=== PATIENT | female | born 1955 | race Caucasian/White ===

== ENCOUNTER 2018-08-05 08:32 | Emergency (ER) | payer OTHER ==
[2018-08-05 08:38] VITALS: BMI 34.5
--- NOTE | 2018-08-05 10:19 | ED PDOC ---
HPI: Back Time Seen by Provider: 08/05/18 08:40 Chief Complaint (Nursing): Back Pain Chief Complaint (Provider): Back pain History Per: Patient History/Exam Limitations: no limitations Onset/Duration Of Symptoms: Days (7) Current Symptoms Are (Timing): Still Present Quality Of Discomfort: "Pain" Associated Symptoms: None Exacerbating Factor(s): Turning, Movement Additional History Per: Patient Additional Complaint(s): 63yo female, history of hypertension, diabetes, 2x coronary stent, hyperthyroidsm, comes to ER with complaints of persistent lower back pain x 7 days. Patient states 7 days ago, while attempting to sit on her bed, she missed and fell, landing on her back. She was evaluated at [facility] [place] where she had XR's done and was informed she did not have any fracture; patient reports she was given an injection for pain and discharged home with flexeril and motrin. Patient has been taking medications as prescribed with no relief of symptoms. Patient denies any new trauma, weakness, numbness, bowel/bladder dysfunction and offers no other complaints. PMD: Dr. Gilmore Past Medical History Reviewed: Historical Data, Nursing Documentation, Vital Signs Vital Signs: Last Vital Signs Temp 97.8 F 08/05/18 08:38 Pulse 68 08/05/18 08:38 Resp 20 08/05/18 08:38 BP 139/78 08/05/18 09:09 Pulse Ox 99 08/05/18 08:38 - Medical History PMH: HTN, Hypercholesterolemia, Hyperthyroidism - Surgical History Surgical History: Cholecystectomy, Coronary Stent - Family History Family History: States: No Known Family Hx - Living Arrangements Living Arrangements: With Family - Social History Current smoker - smoking cessation education provided: No Alcohol: None Drugs: Denies - Home Medications Home Medications: Ambulatory Orders Medication Instructions Recorded Ibuprofen [Motrin] 600 mg PO Q6H PRN #20 tab 08/05/18 - Allergies Allergies/Adverse Reactions: Allergies Allergy/AdvReac Type Severity Reaction Status Date / Time No Known Allergies Allergy Verified 08/05/18 08:49 Review of Systems ROS Statement: Except As Marked, All Systems Reviewed And Found Negative Constitutional: Negative for: Fever, Chills Cardiovascular: Negative for: Chest Pain Respiratory: Negative for: Shortness of Breath Gastrointestinal: Negative for: Vomiting, Abdominal Pain Genitourinary Female: Negative for: Incontinence Musculoskeletal: Positive for: Back Pain Neurological: Negative for: Weakness, Numbness Physical Exam - Reviewed Nursing Documentation Reviewed: Yes Vital Signs Reviewed: Yes - Physical Exam Appears: Positive for: Non-toxic, No Acute Distress Head Exam: Positive for: ATRAUMATIC, NORMAL INSPECTION, NORMOCEPHALIC Skin: Positive for: Normal Color, Warm, DRY Eye Exam: Positive for: EOMI, Normal appearance, PERRL ENT: Positive for: Normal ENT Inspection Neck: Positive for: Normal, Painless ROM Cardiovascular/Chest: Positive for: Regular Rate, Rhythm, Chest Non Tender Respiratory: Positive for: CNT, Normal Breath Sounds Gastrointestinal/Abdominal: Positive for: Normal Exam, Soft Back: Positive for: Other (parathoracic and right paralumbar tenderness; negative straight leg bilaterally) Extremity: Positive for: Normal ROM. Negative for: Deformity Neurologic/Psych: Positive for: Alert, policy writer II-XII, Oriented, Gait (stable). Negative for: Motor/Sensory Deficits, Aphasia, Facial Droop - ECG O2 Sat by Pulse Oximetry: 99 (RA) Pulse Ox Interpretation: Normal Medical Decision Making Medical Decision Making: Impression: Back pain sp fall r/o fractures Plan: * XR Thoracic spine * XR lumbar spine * Toradol 15mg IM * Valium 5mg PO Time: 1120 XR L-spine FINDINGS: BONES: Normal alignment. No listhesis. There is T12 mild compression deformity superior endplate of unknown chronicity. A mild compression injury here osteoporotic type is a consideration no history of trauma provided. No retropulsed ossific fragments noted. The loss of height is estimated at less than 25 percent. DISC SPACES: T11-T12 disc space narrowing OTHER FINDINGS: None. IMPRESSION: Mild compression deformity superior endplate T12 of unknown chronicity -a mild osteo carotic fracture with low less than 25 percent loss of vertebral body height is compatible with this. Correlate clinically Time: 1122 XR L-Spine FINDINGS: BONES: Alignment maintained. There is T12 mild compression deformity superior endplate of unknown chronicity. A mild compression injury here osteoporotic type is a consideration no history of trauma provided. No retropulsed ossific fragments noted. The loss of height is estimated at less than 25 percent. DISC SPACES: Normal. SOFT TISSUES: Normal. OTHER FINDINGS: None. IMPRESSION: Mild compression deformity superior endplate T12 of unknown chronicity -a mild osteoporotic fracture with low less than 25 percent loss of vertebral body height is compatible with this. Correlate clinically Time: [address] Simons ortho front office clerk who recommends a neurosurgery consult due to nature of findings. Time: 1321 Call placed to neurosurgeon front office clerk, pending call-back. Time: 1400 2nd call placed to neurosurgeon front office clerk, pending call-back. Time: [address] billy Rivera ortho spine (works w/ [facility] [place]) who has reviewed all documents and states the fracture will heal on its own and intervention is not necessary. Patient is ok to be discharged home with instructions to follow up with him. instructions given accordingly. Scribe Attestation: Documented by Christina Almeida, acting as a scribe for Mirian Gallegos MD. Provider Scribe Attestation: All medical record entries made by the Scribe were at my direction and personally dictated by me. I have reviewed the chart and agree that the record accurately reflects my personal performance of the history, physical exam, medical decision making, and the department course for this patient. I have also personally directed, reviewed, and agree with the discharge instructions and disposition. Disposition - Clinical Impression Clinical Impression: Low back pain - Patient ED Disposition Is Patient to be Admitted: No Counseled Patient/Family Regarding: Studies Performed, Diagnosis, Need For Followup - Disposition Referrals: [employer] [facility] [Outside] Ham Rivera MD [Staff Provider] - Disposition: Routine/Home Disposition Time: 13:45 Condition: IMPROVED Additional Instructions: follow up with your primary doctor as well as with the spine doctor in 1 week return to the ED with an worsening or concerning symptoms Prescriptions: Ibuprofen [Motrin] 600 mg PO Q6H PRN #20 tab PRN Reason: Pain, Moderate (4-7) Instructions: Low Back Pain (DC) Forms: [employer] (Bulgarian) Print Language: [place]
--- NOTE | 2018-08-05 11:22 | RAD ---
Date of service: 08/05/2018 PROCEDURE: Radiographs of the Lumbar Spine. HISTORY: lower back pain COMPARISON: No prior. FINDINGS: BONES: Normal alignment. No listhesis. There is T12 mild compression deformity superior endplate of unknown chronicity. A mild compression injury here osteoporotic type is a consideration no history of trauma provided. No retropulsed ossific fragments noted. The loss of height is estimated at less than 25 percent. DISC SPACES: T11-T12 disc space narrowing OTHER FINDINGS: None. IMPRESSION: Mild compression deformity superior endplate T12 of unknown chronicity -a mild osteo carotic fracture with low less than 25 percent loss of vertebral body height is compatible with this. Correlate clinically
--- NOTE | 2018-08-05 11:24 | RAD ---
Date of service: 08/05/2018 HISTORY: lower back pain COMPARISON: No prior. FINDINGS: BONES: Alignment maintained. There is T12 mild compression deformity superior endplate of unknown chronicity. A mild compression injury here osteoporotic type is a consideration no history of trauma provided. No retropulsed ossific fragments noted. The loss of height is estimated at less than 25 percent. DISC SPACES: Normal. SOFT TISSUES: Normal. OTHER FINDINGS: None. IMPRESSION: Mild compression deformity superior endplate T12 of unknown chronicity -a mild osteoporotic fracture with low less than 25 percent loss of vertebral body height is compatible with this. Correlate clinically Comments: Study marked for PA review .
[2018-08-05 15:55] VITALS: BP 147/76; PULSE 66; RESP 18; TEMP 98.1
[2018-08-08 22:14] VITALS: O2SAT 99
== END 2018-08-05 14:53 | disposition home or self-care (01) ==
LOC: H.ER 08:32
DX: M54.5 Low back pain (principal); E05.90 Thyrotoxicosis, unspecified without thyrotoxic crisis or storm; E78.00 Pure hypercholesterolemia, unspecified; I10 Essential (primary) hypertension; Z95.5 Presence of coronary angioplasty implant and graft
CPT/HCPCS: 72070; 72114; 96372; 99283; J1885

== ENCOUNTER 2019-04-20 08:17 | Emergency (ER) | payer OTHER ==
[2019-04-20 08:20] VITALS: BMI 29.2
[2019-04-20 08:21] VITALS: TEMP 97.7
--- NOTE | 2019-04-20 10:04 | RAD ---
Date of service: 04/20/2019 HISTORY: cough COMPARISON: No prior. TECHNIQUE: Chest PA and lateral views FINDINGS: LUNGS: No active pulmonary disease. PLEURA: No significant pleural effusion identified. No pneumothorax apparent. CARDIOVASCULAR: No aortic atherosclerotic calcification present. Normal cardiac size. No pulmonary vascular congestion. OSSEOUS STRUCTURES: No significant abnormalities. VISUALIZED UPPER ABDOMEN: Normal. OTHER FINDINGS: None. IMPRESSION: No active disease.
--- NOTE | 2019-04-20 10:47 | ED PDOC ---
HPI: CCC, URI, Sore Throat Time Seen by Provider: 04/20/19 08:30 Chief Complaint (Nursing): Flu-like Symptoms Chief Complaint (Provider): Flu-like Symptoms History Per: Patient History/Exam Limitations: no limitations Onset/Duration Of Symptoms: Days (x3) Current Symptoms Are (Timing): Still Present Additional Complaint(s): Patient is a 64 y/o female with an extensive PMHx who presents to the ED for upper respiratory complaints onset three days ago. Patient reports a cough, sore throat, difficulty swallowing, and mild headache. Patient also states she experienced one episode of diarrhea. Patient denies fever, body aches, and chills. Of note, patient's family members in ED are exhibiting similar symptoms. PCP: Dr. Regina Gilmore Past Medical History Reviewed: Historical Data, Nursing Documentation, Vital Signs Vital Signs: Last Vital Signs Temp 97.7 F 04/20/19 08:20 Pulse 71 04/20/19 08:20 Resp 16 04/20/19 08:20 BP 189/96 H 04/20/19 08:20 Pulse Ox 100 04/20/19 08:20 Primary Care Provider: Regina Gilmore - Medical History PMH: Anemia (POST OPERATIVE), Gall Bladder Disease, HTN, Hypercholesterolemia, Hypothyroidism, TIA Denies: Chronic Kidney Disease - Surgical History Surgical History: Cholecystectomy, Coronary Stent Denies: Pacemaker - Family History Family History: States: No Known Family Hx - Home Medications Home Medications: Ambulatory Orders Medication Instructions Recorded Cholecalciferol [Vitamin D] 1,000 iu PO DAILY 08/17/18 Clopidogrel [Plavix] 75 mg PO DAILY 08/17/18 Empagliflozin [Jardiance] 25 ng PO DAILY 08/17/18 Gabapentin 300 mg PO TID 08/17/18 Insulin Glargine,Hum.rec.anlog 10 unit SQ QPM 08/17/18 [Basaglar Kwikpen U-100] Insulin Glargine,Hum.rec.anlog 20 unit SQ QAM 08/17/18 [Basaglar Kwikpen U-100] Levothyroxine [Synthroid] 100 mcg PO DAILY 08/17/18 Losartan Potassium 100 mg PO DAILY 08/17/18 MetFORMIN [glucOPHAGE] 1,000 mg PO BID 08/17/18 Metoprolol Tartrate 25 mg PO BID 08/17/18 Simvastatin [Zocor] 40 mg PO HS 08/17/18 amLODIPine [Norvasc] 5 mg PO DAILY 08/17/18 Ibuprofen [Motrin Tab] 600 mg PO Q6 PRN #15 tab 04/20/19 Oseltamivir Cap [Tamiflu] 75 mg PO BID #10 cap 04/20/19 - Allergies Allergies/Adverse Reactions: Allergies Allergy/AdvReac Type Severity Reaction Status Date / Time No Known Allergies Allergy Verified 08/17/18 10:57 Review of Systems ROS Statement: Except As Marked, All Systems Reviewed And Found Negative Constitutional: Negative for: Fever, Chills, Other (body aches) ENT: Positive for: Throat Pain (soreness) Respiratory: Positive for: Cough Gastrointestinal: Positive for: Diarrhea Neurological: Positive for: Headache (mild) Physical Exam - Reviewed Nursing Documentation Reviewed: Yes Vital Signs Reviewed: Yes - Physical Exam Appears: Positive for: No Acute Distress (on evaluation patient is drinking coffee and eating oatmeal) Head Exam: Positive for: ATRAUMATIC, NORMAL INSPECTION, NORMOCEPHALIC Skin: Positive for: Normal Color, Warm. Negative for: Rash Eye Exam: Positive for: EOMI, Normal appearance, PERRL ENT: Positive for: Normal ENT Inspection, TM Is/Are (unremarkable bilaterally), Pharyngeal Erythema. Negative for: Tonsillar Exudate Neck: Positive for: Normal, Painless ROM, Supple Cardiovascular/Chest: Positive for: Regular Rate, Rhythm. Negative for: Murmur Respiratory: Positive for: Normal Breath Sounds. Negative for: Respiratory Distress Gastrointestinal/Abdominal: Positive for: Normal Exam, Soft. Negative for: Tenderness Back: Positive for: Normal Inspection. Negative for: L CVA Tenderness, R CVA Tenderness Extremity: Positive for: Normal ROM. Negative for: Pedal Edema, Deformity Neurological/Psych: Positive for: Alert, Oriented (x3) - ECG O2 Sat by Pulse Oximetry: 100 (RA) Pulse Ox Interpretation: Normal Medical Decision Making Medical Decision Making: Time: 851 Plan: CXR Tylenol 650 mg PO Time: 1000 FINDINGS: LUNGS: No active pulmonary disease. PLEURA: No significant pleural effusion identified. No pneumothorax apparent. CARDIOVASCULAR: No aortic atherosclerotic calcification present. Normal cardiac size. No pulmonary vascular congestion. OSSEOUS STRUCTURES: No significant abnormalities. VISUALIZED UPPER ABDOMEN: Normal. OTHER FINDINGS: None. IMPRESSION: No active disease. Time: 1041 Plan: Rapid Flu A/B Rapid Strep Group A Antigen Most likely to be discharged home. Time: 1140 Rapid strep negative. Influenza A positive. BP elevated but otherwise asymptomatic. Didnt take BP meds yet today. Re-eval well appearing w clear speech without complaints. DC home to followup PMD, take BP meds soon as get home and have BP check within 48hrs. Scribe Attestation: Documented by Bryson Prather, acting as a scribe Kelsey Masterson III, DO. Provider Scribe Attestation: All medical record entries made by the Scribe were at my direction and personally dictated by me. I have reviewed the chart and agree that the record accurately reflects my personal performance of the history, physical exam, medical decision making, and the department course for this patient. I have also personally directed, reviewed, and agree with the discharge instructions and disposition. Disposition - Clinical Impression Clinical Impression: Influenza - Patient ED Disposition Is Patient to be Admitted: No Counseled Patient/Family Regarding: Studies Performed, Diagnosis, Need For Followup, Rx Given - Disposition Disposition: Routine/Home Disposition Time: 12:55 Condition: STABLE Additional Instructions: Drink plenty of fluids. Return to ER for any worse or new symptoms. Avoid close contact with others. See PMD in 3-4 days for re-evaluation./ Prescriptions: Ibuprofen [Motrin Tab] 600 mg PO Q6 PRN #15 tab PRN Reason: Pain, Moderate (4-7) Oseltamivir Cap [Tamiflu] 75 mg PO BID #10 cap Instructions: Flu, Adult (DC) Forms: [employer] (Kiswahili)
[2019-04-20 13:11] VITALS: BP 195/107; PULSE 70; RESP 18
[2019-04-20 13:16] VITALS: O2SAT 100
== END 2019-04-20 13:09 | disposition home or self-care (01) ==
LOC: H.ER 08:17
DX: J11.1 Influenza due to unidentified influenza virus with other respiratory manifestations (principal); E03.9 Hypothyroidism, unspecified; I10 Essential (primary) hypertension; Z79.4 Long term (current) use of insulin; Z86.73 Personal history of transient ischemic attack (TIA), and cerebral infarction without residual deficits; Z95.5 Presence of coronary angioplasty implant and graft; E78.00 Pure hypercholesterolemia, unspecified

== ENCOUNTER 2019-04-30 21:04 | Emergency (ER) | payer OTHER ==
[2019-04-30 21:13] VITALS: RESP 18; BMI 31.6
[2019-04-30] MEDS ORDERED: Albuterol-Ipratrop 3 mg / 0.5 (3 ml) UD INH STA (21:28)
--- NOTE | 2019-04-30 21:31 | ED PDOC ---
History of Present Illness History of Present Illness: 64 y/o female presents to the ED for evaluation of a cough and sore throat. Patient was diagnosed with the Flu on 04/20/2019, was given Tamiflu and has since had a persistent cough and sore throat. Otherwise, patient denies fever or chills. PMD: Regina Gilmore HPI: Influenza Time Seen by Provider: 04/30/19 21:28 Chief Complaint: Flu-like Symptoms Chief Complaint (Provider): Flu-like Symptoms History Per: Patient Exam Limitations: no limitations Onset/Duration Of Symptoms: Days Symptoms include: sore throat, cough Past Medical History Reviewed: Historical Data, Nursing Documentation, Vital Signs Vital Signs: Last Vital Signs Temp 98.4 F 04/30/19 21:12 Pulse 81 04/30/19 21:12 Resp 18 04/30/19 21:12 BP 168/89 H 04/30/19 21:12 Pulse Ox 98 04/30/19 21:12 Primary Care Provider: Regina Gilmore Medical History PMH: Anemia (POST OPERATIVE), Gall Bladder Disease, HTN, Hypercholesterolemia, Hypothyroidism, TIA Denies: Chronic Kidney Disease - Surgical History Surgical History: Cholecystectomy, Coronary Stent Denies: Pacemaker - Family History Family History: States: No Known Family Hx - Home Medications Home Medications: Ambulatory Orders Medication Instructions Recorded Cholecalciferol [Vitamin D] 1,000 iu PO DAILY 08/17/18 Clopidogrel [Plavix] 75 mg PO DAILY 08/17/18 Empagliflozin [Jardiance] 25 ng PO DAILY 08/17/18 Gabapentin 300 mg PO TID 08/17/18 Insulin Glargine,Hum.rec.anlog 10 unit SQ QPM 08/17/18 [Basaglar Kwikpen U-100] Insulin Glargine,Hum.rec.anlog 20 unit SQ QAM 08/17/18 [Basaglar Kwikpen U-100] Levothyroxine [Synthroid] 100 mcg PO DAILY 08/17/18 Losartan Potassium 100 mg PO DAILY 08/17/18 MetFORMIN [glucOPHAGE] 1,000 mg PO BID 08/17/18 Metoprolol Tartrate 25 mg PO BID 08/17/18 Simvastatin [Zocor] 40 mg PO HS 08/17/18 amLODIPine [Norvasc] 5 mg PO DAILY 08/17/18 Ibuprofen [Motrin Tab] 600 mg PO Q6 PRN #15 tab 04/20/19 Oseltamivir Cap [Tamiflu] 75 mg PO BID #10 cap 04/20/19 Albuterol HFA [Ventolin HFA 90 2 puff IH [id number] PRN #1 inhaler 04/30/19 mcg/actuation (8 g)] Azithromycin [Zithromax] 250 mg PO DAILY #6 tab 04/30/19 Guaifenesin [Adult Tussin Chest 20 ml PO Q6 PRN #300 ml 04/30/19 Congestion] Prednisone [Deltasone] 3 tab PO DAILY #15 tablet 04/30/19 Promethazine/Codeine 5 ml PO Q12 PRN #100 ml 04/30/19 [Codeine/Promethazine 10 MG/5 Ml-6.25 MG/5 Ml] - Allergies Allergies/Adverse Reactions: Allergies Allergy/AdvReac Type Severity Reaction Status Date / Time No Known Allergies Allergy Verified 04/30/19 21:17 Review of Systems ROS Statement: Except As Marked, All Systems Reviewed And Found Negative ENT: Positive for: Throat Pain Respiratory: Positive for: Cough Physical Exam - Reviewed Vital Signs Reviewed: Yes - Physical Exam Appears: Positive for: No Acute Distress Head Exam: Positive for: ATRAUMATIC, NORMOCEPHALIC Skin: Positive for: Normal Color Eye Exam: Positive for: Normal appearance ENT: Positive for: Normal ENT Inspection Neck: Positive for: Normal Cardiovascular/Chest: Positive for: Regular Rate, Rhythm. Negative for: Murmur Respiratory: Positive for: Other (bronchospastic cough noted). Negative for: Rales, Wheezing, Respiratory Distress Extremity: Positive for: Normal ROM Neurological/Psych: Positive for: Awake, Alert, Oriented (x3). Negative for: Motor/Sensory Deficits Medical Decision Making Medical Decision Making: Time: 2127 Impression: cough and sore throat Plan: -- CXR -- Duoneb 3mg/0.5mg 3ml (UD) 3ml INH -- Peak Flow Pre/Post Tx Scribe Attestation: Documented by Leon Taylor, acting as a scribe Adrianna Youssef PA-C. Provider Scribe Attestation: All medical record entries made by the Scribe were at my direction and personally dictated by me. I have reviewed the chart and agree that the record accurately reflects my personal performance of the history, physical exam, medical decision making, and the department course for this patient. I have also personally directed, reviewed, and agree with the discharge instructions and disposition. - ECG O2 Sat by Pulse Oximetry: 98 (RA) Pulse Ox Interpretation: Normal - Progress ED Course And Treament: CXR NO INFILTRATE DUONEB X 1 DOSE Disposition - Clinical Impression Clinical Impression: Bronchitis - Patient ED Disposition Is Patient to be Admitted: No - Disposition Referrals: [facility] [Outside] Disposition: Routine/Home Disposition Time: 22:12 Condition: FAIR Prescriptions: Albuterol HFA [Ventolin HFA 90 mcg/actuation (8 g)] 2 puff IH [id number] PRN #1 inhaler PRN Reason: Cough Azithromycin [Zithromax] 250 mg PO DAILY #6 tab Guaifenesin [Adult Tussin Chest Congestion] 20 ml PO Q6 PRN #300 ml PRN Reason: Cough Prednisone [Deltasone] 3 tab PO DAILY #15 tablet Promethazine/Codeine [Codeine/Promethazine 10 MG/5 Ml-6.25 MG/5 Ml] 5 ml PO Q12 PRN #100 ml PRN Reason: Cough Instructions: Acute Bronchitis
[2019-04-30 22:20] VITALS: BP 158/87; PULSE 72; TEMP 98.2; O2SAT 100
--- NOTE | 2019-05-01 08:30 | RAD ---
Date of service: 04/30/2019 HISTORY: ROUTINE COMPARISON: No prior. TECHNIQUE: Chest PA and lateral views FINDINGS: LUNGS: No active pulmonary disease. PLEURA: No significant pleural effusion identified. No pneumothorax apparent. CARDIOVASCULAR: No aortic atherosclerotic calcification present. Normal cardiac size. No pulmonary vascular congestion. OSSEOUS STRUCTURES: No significant abnormalities. VISUALIZED UPPER ABDOMEN: Normal. OTHER FINDINGS: None. IMPRESSION: No active disease.
== END 2019-04-30 22:20 | disposition home or self-care (01) ==
LOC: H.ER 21:04
DX: J40 Bronchitis, not specified as acute or chronic (principal)